=== PATIENT | male | born 1990 | race African-American/Black ===

== ENCOUNTER 2018-10-30 17:59 | Emergency (ER) | payer SELFPAY ==
[~2018-10-30] VITALS: Ht 188 cm; Wt 106.6 kg
[2018-10-30 21:27] LABS: Urine Bacteria NONE SEEN /hpf (None Seen); Urine Blood Negative /uL (Negative); Urine Specific Gravity 1.022 (1.001-1.035); Urine WBC 2 /hpf (0 - 3)
[2018-10-30 21:28] LABS: Alcohol, Urine < 3.0 mg/dL (0-5); Amphetamine Screen, Urine NEGATIVE (NEGATIVE); Barbiturate Scree,Urine NEGATIVE (NEGATIVE); Benzodiazephine Screen, Urine NEGATIVE (NEGATIVE); Cannabinoid Screen, Urine NEGATIVE (NEGATIVE); Cocaine Screen, Urine NEGATIVE (NEGATIVE); Opiate Scree,Urine NEGATIVE (NEGATIVE); Phencyclidine Screen, Urine NEGATIVE (NEGATIVE)
[2018-10-30 23:38] VITALS: BP 117/51
[2018-10-31] MEDS ORDERED: cefTRIAXone SODIUM 250 MG VL IM ONE (01:45)
[2018-10-31] MEDS ORDERED: AZITHROMYCIN 250 MG TAB PO ONE (01:45)
== END 2018-10-31 02:22 | disposition home or self-care (01) ==
LOC: ER 18:03
DX: R42 Dizziness and giddiness (principal); F17.210 Nicotine dependence, cigarettes, uncomplicated; J45.909 Unspecified asthma, uncomplicated
CPT/HCPCS: 80307; 81001; 82962; 93005; 96372; 99284; J0696

== ENCOUNTER 2023-10-04 13:39 | Emergency (ER) | payer MEDICAID, OTHER | END 2023-10-04 14:56 | disposition left against medical advice (07) | LOC: ER 13:39 | DX: R51.9 Headache, unspecified (principal); Z53.21 Procedure and treatment not carried out due to patient leaving prior to being seen by health care provider ==